=== PATIENT | female | born 1955 | race Caucasian/White ===

== ENCOUNTER 2018-04-16 19:54 | Emergency (ER) | payer OTHER, SELFPAY ==
[2018-04-16 19:57] VITALS: BP 129/79; PULSE 92; RESP 20; TEMP 36.9; O2SAT 95; BMI 35.7
--- NOTE | 2018-04-16 20:09 | ED.SKABFB ---
HPI - Skin/Abscess/Foreign Bdy <YAJAIRA Dasilva - Last Filed: 04/16/18 21:36> General Chief complaint: Skin/Abscess/Foreign Body Stated complaint: YEAST INFECTION ON BODY HURTS GREGORY Time Seen by Provider: 04/16/18 20:18 Source: patient Mode of arrival: ambulatory Limitations: no limitations History of Present Illness HPI narrative: 63-year-old female here for complaint of having a yeast infection to areas underneath her breast underneath her abdominal fold neck and elbow regions for the last couple of weeks. She is currently traveling the country with her and she was seen 2 weeks ago and was treated with ketoconazole cream. She states that the rash has not improved at all with the treatment. She denies any fevers or chills. Increased pain with palpation to the painful area. She denies any other concerns or complaints at this time. MD complaint: rash Related Data Home Medications Medication Instructions Recorded Confirmed amlodipine 5 mg PO DAILY 04/16/18 04/16/18 clopidogrel 75 mg PO DAILY 04/16/18 04/16/18 duloxetine 60 mg PO DAILY 04/16/18 04/16/18 fluticasone-salmeterol [Advair 2 inh INHALATION DAILY 04/16/18 04/16/18 Diskus] ketoconazole 1 applic TOPICAL BID 04/16/18 04/16/18 levothyroxine 88 mcg PO DAILY 04/16/18 04/16/18 metformin 1,000 mg PO DAILY 04/16/18 04/16/18 methylphenidate HCl 40 mg PO TID 04/16/18 04/16/18 metoprolol succinate [Toprol XL] 100 mg PO DAILY 04/16/18 04/16/18 morphine 15 mg PO BID 04/16/18 04/16/18 oxycodone-acetaminophen 1 tab PO QID PRN 04/16/18 04/16/18 pregabalin [Lyrica] 300 mg PO DAILY 04/16/18 04/16/18 topiramate 50 mg PO BID 04/16/18 04/16/18 trazodone 50 mg PO BEDTIME 04/16/18 04/16/18 Previous Rx's Medication Instructions Recorded fluconazole 200 mg PO WEEKLY #4 tab 04/16/18 Allergies Allergy/AdvReac Type Severity Reaction Status Date / Time Penicillins Allergy Swelling Verified 04/16/18 20:04 of the Eye Ivdcwli-Iio-Cey Reductase AdvReac Shakiness Verified 04/16/18 20:04 Inhibitor Review of Systems <YAJAIRA Dasilva - Last Filed: 04/16/18 21:36> Constitutional Denies chills, Denies fever(s), Denies lethargy and Denies weakness Eyes Denies change in vision, Denies eye discharge, Denies irritation and Denies loss of vision ENT Ears, Nose, Mouth, and Throat: Denies change in voice, Denies neck pain and Denies sore throat Cardiovascular Denies chest pain, Denies irregular heart rhythm, Denies lightheadedness, Denies palpitations, Denies dyspnea, Denies dyspnea on exertion and Denies orthopnea Respiratory Denies cough, Denies dyspnea, Denies dyspnea on exertion and Denies wheezing Gastrointestinal Gastrointestinal: Denies abdominal pain, Denies change in bowel habits, Denies diarrhea, Denies nausea and Denies vomiting Genitourinary Denies hematuria, Denies flank pain, Denies urinary incontinence and Denies urinary urgency Musculoskeletal Denies neck pain Neurologic Denies loss of vision and Denies weakness Endocrine Denies palpitations Allergic/Immunologic Denies wheezing Exam <YAJAIRA Dasilva - Last Filed: 04/16/18 21:36> Initial Vital Signs Initial Vital Signs: Vital Signs Temperature 98.4 F 04/16/18 19:57 Pulse Rate 92 H 04/16/18 19:57 Respiratory Rate 20 04/16/18 19:57 Blood Pressure 129/79 H 04/16/18 19:57 Pulse Oximetry 95 04/16/18 19:57 Const General: cooperative and well developed Nutritional Appearance: well nourished Orientation: alert, awake, oriented x3 and not confused [facility] Mouth: oral mucosae normal and moist mucous membranes Eyes Conjunctivae: conjunctivae normal Sclera: sclerae normal Pupils: PERRL EOM: EOM intact bilaterally Resp Effort & Inspection: normal respiratory effort, able to speak in complete sentences, no respiratory distress and no use of accessory muscles Auscultation: clear to auscultation bilaterally, no rales, no rhonchi and no wheezes Cardio Rate: regular rate Rhythm: regular rhythm Heart Sounds: no click, no gallops, no murmurs and no rubs Pulses: normal peripheral pulses Skin Other: Erythema to area between the folds of the frontal abdominal area erythematous slightly raised borders clear margin lines limited only to the fold area. Similar symptoms to areas beneath breast to the groin and to the elbow region and also to the anterior neck. No open lesions. No fluctuance induration Neuro General: alert, oriented x3, gait normal and no focal motor deficits Speech: speech normal <David Quezada DO - Last Filed: 04/17/18 03:48> Initial Vital Signs Initial Vital Signs: Vital Signs Temperature 98.4 F 04/16/18 19:57 Pulse Rate 92 H 04/16/18 19:57 Respiratory Rate 20 04/16/18 19:57 Blood Pressure 129/79 H 04/16/18 19:57 Pulse Oximetry 95 04/16/18 19:57 Course <YAJAIRA Dasilva - Last Filed: 04/16/18 21:36> Orders Ordered: ED Orders 04/16/18 20:38 Complete Blood Count AUTO DIFF Stat Comprehensive Metabolic Panel Stat Procalcitonin Stat Prothrombin Time INR Stat Discontinued Medications Diphenhydramine HCl (Benadryl) 25 mg PO NOW ONE Stop: 04/16/18 20:38 Last Admin: 04/16/18 20:39 Dose: 25 mg Vital Signs - 8 hr 04/16/18 19:57 Temperature 98.4 F Pulse Rate 92 H Respiratory Rate 20 Blood Pressure 129/79 H Pulse Oximetry 95 <David Quezada DO - Last Filed: 04/17/18 03:48> Orders Ordered: ED Orders 04/16/18 20:38 Complete Blood Count AUTO DIFF Stat Comprehensive Metabolic Panel Stat Procalcitonin Stat Prothrombin Time INR Stat Discontinued Medications Diphenhydramine HCl (Benadryl) 25 mg PO NOW ONE Stop: 04/16/18 20:38 Last Admin: 04/16/18 20:39 Dose: 25 mg Vital Signs - 8 hr 04/16/18 19:57 Temperature 98.4 F Pulse Rate 92 H Respiratory Rate 20 Blood Pressure 129/79 H Pulse Oximetry 95 MDM - Skin/Abscess/Foreign Bdy <YAJAIRA Dasilva - Last Filed: 04/16/18 21:36> Lab Data Result diagrams: 04/16/18 20:38 04/16/18 20:38 Lab Results 04/16/18 04/16/18 04/16/18 Range/Units 20:38 20:38 20:38 WBC 5.8 (4.5-11.0) X10^3/uL RBC 4.46 (4.0-5.2) X10^6/uL Hgb 12.8 (12.0-16.0) g/dL Hct 38.7 (36-46) % MCV 86.8 (80-100) fL MCH 28.8 (26-34) PG MCHC 33.1 (30-36) % RDW 15.1 H (11.6-14.8) % Plt Count 231 (150-400) X10^3/uL Neut % (Auto) 61.2 (50-75) % Lymph % (Auto) 30.5 (25-40) % [place] % (Auto) 6.3 (3-14) % Eos % (Auto) 0.7 L (2-4) % Baso % (Auto) 1.3 (0-2) % Neut # (Auto) 3500 (9011-9952) /uL PT 11.6 (10.1-12.7) SECONDS INR 1.1 (0.9-1.3) Sodium (137-145) mmol/L Potassium (3.4-5.1) mmol/L Chloride (98-107) mmol/L Carbon Dioxide (22-32) mmol/L BUN (7-17) mg/dL Creatinine (0.52-1.04) mg/dL Estimated GFR (>60) mL/min BUN/Creatinine Ratio (6-22) Glucose (80-110) mg/dL Calcium (8.4-10.2) mg/dL Total Bilirubin (0.2-1.3) mg/dL AST (14-36) IU/L ALT (9-52) IU/L Alkaline Phosphatase (38-126) U/L Total Protein (6.3-8.2) g/dL Albumin (3.5-5.0) g/dL Globulin (1.7-4.1) g/dL Albumin/Globulin Ratio (1.0-2.8) Procalcitonin < 0.05 (<0.5) ng/mL 04/16/18 Range/Units 20:38 WBC (4.5-11.0) X10^3/uL RBC (4.0-5.2) X10^6/uL Hgb (12.0-16.0) g/dL Hct (36-46) % MCV (80-100) fL MCH (26-34) PG MCHC (30-36) % RDW (11.6-14.8) % Plt Count (150-400) X10^3/uL Neut % (Auto) (50-75) % Lymph % (Auto) (25-40) % [place] % (Auto) (3-14) % Eos % (Auto) (2-4) % Baso % (Auto) (0-2) % Neut # (Auto) (6705-6004) /uL PT (10.1-12.7) SECONDS INR (0.9-1.3) Sodium 144 (137-145) mmol/L Potassium 3.9 (3.4-5.1) mmol/L Chloride 106 (98-107) mmol/L Carbon Dioxide 28 (22-32) mmol/L BUN 25 H (7-17) mg/dL Creatinine 1.00 (0.52-1.04) mg/dL Estimated GFR 56.0 L (>60) mL/min BUN/Creatinine Ratio 25.0 H (6-22) Glucose 127 H (80-110) mg/dL Calcium 9.7 (8.4-10.2) mg/dL Total Bilirubin 0.5 (0.2-1.3) mg/dL AST 37 H (14-36) IU/L ALT 38 (9-52) IU/L Alkaline Phosphatase 80 (38-126) U/L Total Protein 6.9 (6.3-8.2) g/dL Albumin 4.1 (3.5-5.0) g/dL Globulin 2.8 (1.7-4.1) g/dL Albumin/Globulin Ratio 1.5 (1.0-2.8) Procalcitonin (<0.5) ng/mL MDM Narrative Medical decision making narrative: CBC and Chem panel were obtained. CBC was unremarkable Chem pallor shows glucose at 125 and GFR 56. Signs and symptoms present as into intertrigo secondary to body habitus. She has used ketoconazole which has not helped her symptoms. She states that her symptoms started to get better however the last few days they have worsened. She is instructed to use fluconazole orally to treat the symptoms. She is also instructed to keep area is dry as much as possible and to aerate areas as much as possible. Follow up with primary care provider. Return emergency room for any worsening symptoms. <David Quezada DO - Last Filed: 04/17/18 03:48> Lab Data Lab Results 04/16/18 04/16/18 04/16/18 Range/Units 20:38 20:38 20:38 WBC 5.8 (4.5-11.0) X10^3/uL RBC 4.46 (4.0-5.2) X10^6/uL Hgb 12.8 (12.0-16.0) g/dL Hct 38.7 (36-46) % MCV 86.8 (80-100) fL MCH 28.8 (26-34) PG MCHC 33.1 (30-36) % RDW 15.1 H (11.6-14.8) % Plt Count 231 (150-400) X10^3/uL Neut % (Auto) 61.2 (50-75) % Lymph % (Auto) 30.5 (25-40) % [place] % (Auto) 6.3 (3-14) % Eos % (Auto) 0.7 L (2-4) % Baso % (Auto) 1.3 (0-2) % Neut # (Auto) 3500 (9152-2873) /uL PT 11.6 (10.1-12.7) SECONDS INR 1.1 (0.9-1.3) Sodium (137-145) mmol/L Potassium (3.4-5.1) mmol/L Chloride (98-107) mmol/L Carbon Dioxide (22-32) mmol/L BUN (7-17) mg/dL Creatinine (0.52-1.04) mg/dL Estimated GFR (>60) mL/min BUN/Creatinine Ratio (6-22) Glucose (80-110) mg/dL Calcium (8.4-10.2) mg/dL Total Bilirubin (0.2-1.3) mg/dL AST (14-36) IU/L ALT (9-52) IU/L Alkaline Phosphatase (38-126) U/L Total Protein (6.3-8.2) g/dL Albumin (3.5-5.0) g/dL Globulin (1.7-4.1) g/dL Albumin/Globulin Ratio (1.0-2.8) Procalcitonin < 0.05 (<0.5) ng/mL 04/16/18 Range/Units 20:38 WBC (4.5-11.0) X10^3/uL RBC (4.0-5.2) X10^6/uL Hgb (12.0-16.0) g/dL Hct (36-46) % MCV (80-100) fL MCH (26-34) PG MCHC (30-36) % RDW (11.6-14.8) % Plt Count (150-400) X10^3/uL Neut % (Auto) (50-75) % Lymph % (Auto) (25-40) % [place] % (Auto) (3-14) % Eos % (Auto) (2-4) % Baso % (Auto) (0-2) % Neut # (Auto) (4611-4249) /uL PT (10.1-12.7) SECONDS INR (0.9-1.3) Sodium 144 (137-145) mmol/L Potassium 3.9 (3.4-5.1) mmol/L Chloride 106 (98-107) mmol/L Carbon Dioxide 28 (22-32) mmol/L BUN 25 H (7-17) mg/dL Creatinine 1.00 (0.52-1.04) mg/dL Estimated GFR 56.0 L (>60) mL/min BUN/Creatinine Ratio 25.0 H (6-22) Glucose 127 H (80-110) mg/dL Calcium 9.7 (8.4-10.2) mg/dL Total Bilirubin 0.5 (0.2-1.3) mg/dL AST 37 H (14-36) IU/L ALT 38 (9-52) IU/L Alkaline Phosphatase 80 (38-126) U/L Total Protein 6.9 (6.3-8.2) g/dL Albumin 4.1 (3.5-5.0) g/dL Globulin 2.8 (1.7-4.1) g/dL Albumin/Globulin Ratio 1.5 (1.0-2.8) Procalcitonin (<0.5) ng/mL Discharge Plan Departure Patient Disposition: Home Clinical Impression: Candidal intertrigo Discharge Date/Time: 04/16/18 21:30 Interventions: ED Discharge Assessment Last Done: 04/16/18 21:29 Instructions: Yeast Infection-Skin Activity Restrictions/Additional Instructions: Laboratory results today show elevated glucose of 125 and slight decrease in renal function of GFR 56. Ensure your drinking plenty of fluids. You are prescribed oral antifungal called fluconazole use as directed. Follow up next week for re-evaluation to ensure is improving. Keep areas clean and dry recommend using a gentle blow dryer to that area after taking a shower to dry thoroughly before getting dressed. Aerate areas as much as possible to keep them dry throughout the day. May use cloth in between areas to wake moisture away. For any worsening symptoms return to the emergency room. Prescriptions: New fluconazole 200 mg tablet 200 mg PO WEEKLY Qty: 4 RF: 0 No Action trazodone 50 mg tablet 50 mg PO BEDTIME RF: 0 methylphenidate HCl 20 mg tablet 40 mg PO TID RF: 0 metoprolol succinate [Toprol XL] 100 mg tablet extended release 24 hr 100 mg PO DAILY RF: 0 clopidogrel 75 mg tablet 75 mg PO DAILY RF: 0 amlodipine 5 mg tablet 5 mg PO DAILY RF: 0 levothyroxine 88 mcg tablet 88 mcg PO DAILY RF: 0 oxycodone-acetaminophen 10-325 mg tablet 1 tab PO QID PRN (Reason: Pain (Scale Score 4-6)) RF: 0 fluticasone-salmeterol [Advair Diskus] 500-50 mcg/dose blister with device 2 inh Inhalation DAILY RF: 0 morphine 15 mg tablet extended release 15 mg PO BID RF: 0 ketoconazole 2 % cream 1 applic Topical BID RF: 0 metformin 500 mg tablet extended release 24 hr 1,000 mg PO DAILY RF: 0 topiramate 50 mg tablet 50 mg PO BID RF: 0 duloxetine 60 mg capsule,delayed release(DR/EC) 60 mg PO DAILY RF: 0 pregabalin [Lyrica] 150 mg capsule 300 mg PO DAILY RF: 0 Referrals: [facility] [Provider Group] <David Quezada DO - Last Filed: 04/17/18 03:48> Cosign ED Attending Maryature Attestation: I was immediately available in the department for consultation. Documentation has been reviewed. I agree with assessment and plan.
[2018-04-16] MEDS: diphenhydrAMINE 25 MG TABLET PO (20:39)
[2018-04-16 20:48] LABS: Add Manual Diff / Slide Review NO; Basophils Percent Auto 1.3 % (0-2); Eosinophils Percent Auto 0.7 % (2-4); Hematocrit 38.7 % (36-46); Hemoglobin 12.8 g/dL (12.0-16.0); Lymphocytes Percent Auto 30.5 % (25-40); Mean Corpuscular HGB Conc 33.1 % (30-36); Mean Corpuscular Hemoglobin 28.8 PG (26-34); Mean Corpuscular Volume 86.8 fL (80-100); Monocytes Percent Auto 6.3 % (3-14); Neutrophils Absolute Auto 3500 /uL (3000-5900); Neutrophils Percent Auto 61.2 % (50-75); Platelet Count 231 X10^3/uL (150-400); Red Blood Cell Count 4.46 X10^6/uL (4.0-5.2); Red Cell Distribution Width 15.1 % (11.6-14.8); White Blood Cell Count 5.8 X10^3/uL (4.5-11.0)
[2018-04-16 20:49] LABS: INR 1.1 (0.9-1.3); Prothrombin Time 11.6 SECONDS (10.1-12.7)
[2018-04-16 20:59] LABS: Alanine Aminotransferase 38 IU/L (9-52); Albumin 4.1 g/dL (3.5-5.0); Albumin Globulin Ratio 1.5 (1.0-2.8); Alkaline Phosphatase 80 U/L (38-126); Aspartate Aminotransferase 37 IU/L (14-36); Bilirubin Total 0.5 mg/dL (0.2-1.3); Blood Urea Nitrogen 25 mg/dL (7-17); Calcium 9.7 mg/dL (8.4-10.2); Carbon Dioxide 28 mmol/L (22-32); Chloride 106 mmol/L (98-107); Globulin 2.8 g/dL (1.7-4.1); Glucose 127 mg/dL (80-110); HEMOLYSIS 31 (0-50); Potassium 3.9 mmol/L (3.4-5.1); Sodium 144 mmol/L (137-145); Total Protein 6.9 g/dL (6.3-8.2)
--- NOTE | 2018-04-16 21:02 | PC.NURSE ---
patient has a rash that is erythema and itchy to multiple areas of the body including elbow crease, neck crease, under breast and under lower abdominal skin folds. no drainage. no foul odor. some areas diffuse and some areas solid red.
[2018-04-16 21:23] LABS: Procalcitonin < 0.05 ng/mL (<0.5)
== END 2018-04-16 21:30 | disposition home or self-care (01) ==
PROVIDERS: Emergency Provider Nurse Practitioner Family
DX: B37.9 Candidiasis, unspecified (principal)
CPT/HCPCS: 36415; 80053; 84145; 85025; 85610; 99282; 99283